=== PATIENT | male | born 1975 | race African-American/Black ===

== ENCOUNTER 2017-05-20 01:08 | Inpatient (IN) | payer OTHER ==
[~2017-05-20] VITALS: Ht 182.9 cm; Wt 76.2 kg
[2017-05-20] VITALS (7 sets, daily range): BP systolic 125–160; BP diastolic 87–109
--- NOTE | ~2017-05-20 | EKG ---
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 : 1975 Requested By: Holly Roger Order Number: [id number] MD: Johnny Pacheco Measurements Intervals [place] Rate: 78 P: [place]: QRS: 45 QRSD: 114 T: 57 QT: 519 QTc: 592 Interpretive Statements Normal sinus rhythm Borderline intraventricular conduction delay ST elev, probable normal early repol pattern Prolonged QT interval Artifact in lead(s) I,II,aVR,aVF Compared to ECG 04/03/2016 07:22:37 Prolonged QT interval now present Electronically Signed On 05-20-2017 7:18:24 CDT by Johnny Pacheco [email or web address] <ELECTRONICALLY SIGNED> By: Johnny Pacheco MD, [facility] 05/20/17 0718 011 011 Johnny Pacheco MD, [facility] /EPI
--- NOTE | ~2017-05-20 | EKG ---
[place] [address] [facility] [id number] ELECTROCARDIOGRAM REPORT Name: CRISTOPHER WALKER Room #: 361-P ADM IN M.R.#: [id number] Admission: 05/20/17 Attend Phys: Pancho Mcnally DO Discharge: Date of : 77 Report #: [id number] THIS REPORT FOR: //name// [facility] Test Date: 2017-05-20 Test Time: 04:54:04 Pat Name: CRISTOPHER WALKER Department: Room: 361 Gender: M Director Home: marlene leonardo : 1975 Requested By: Marilu Anderson Order Number: [id number] MD: Johnny Pacheco Measurements Intervals [place] Rate: 76 P: 74 W[place]: 148 QRS: 55 QRSD: 102 T: 50 QT: 405 QTc: 456 Interpretive Statements Sinus rhythm Left ventricular hypertrophy Baseline wander in lead(s) V3 Compared to ECG 04/03/2016 07:22:37 QT interval shortened Electronically Signed On 05-20-2017 7:19:24 CDT by Johnny Pacheco [email or web address] <ELECTRONICALLY SIGNED> By: Johnyn Pacheco MD, [facility] 05/20/17 0719 0454 045 Johnny Pacheco MD, [facility] /EPI
[~2017-05-20 01:08] MED LIST: ASPIRIN325 PO; COLCHICINE0.6 MG PO; OMEPRAZOLE20 M1 PO
[2017-05-20 01:29] LABS: ABSOLUTE NEUTROPHILS 5.6 thou/uL (1.4-8.2); BASOPHILS 0.3 % (0.0-2.0); EOSINOPHILS 0.2 % (0.0-3.0); HEMOGLOBIN 15.4 gm/dL (14.0-18.0); LYMPHOCYTES 27.4 % (24.0-44.0); MCH 34.8 pg (26.0-34.0); MCHC 34.9 g/dL (28.0-37.0); MCV 99.7 fL (80.0-100.0); MONOCYTES 9.8 % (1.0-8.0); PLATELET COUNT 308 thou/uL (150-400); POLYS 62.3 % (36.0-66.0); RBC 4.41 mil/uL (4.50-6.00); RDW 14.1 % (10.5-14.5)
[2017-05-20] MEDS ORDERED: LISINOPRIL10 MG PO (01:32)
[2017-05-20] MEDS ORDERED: NAPROSYN500 MG PO (01:33)
[2017-05-20] MEDS ORDERED: CELEXA20 MG PO (01:33)
[2017-05-20] MEDS ORDERED: CHLORTHALIDONE25 MG PO (01:33)
[2017-05-20] MEDS ORDERED: LIPITOR10 MG PO (01:33)
[2017-05-20 01:36] LABS: ANION GAP 20 mmol/L (7-16); BUN 17 mg/dL (7-18); CALCIUM 9.2 mg/dL (8.5-10.1); CHLORIDE 79 mmol/L (98-107); CO2 24 mmol/L (21-32); CREATININE 1.1 mg/dL (0.7-1.3); GLUCOSE 154 mg/dL (74-106); SODIUM 123 mmol/L (136-145)
[2017-05-20 01:45] LABS: TROPONIN-I < 0.04 ng/mL (<0.06)
[2017-05-20 09:19] LABS: AMP/METHAMP Negative (Negative); BARBITURATES Negative (Negative); BENZODIAZEPINES Negative (Negative); COCAINE Negative (Negative); METHADONE Negative (Negative); OPIATES Negative (Negative); PCP Negative (Negative)
[2017-05-21 03:29] VITALS: BP 138/90
[2017-05-21 04:45] LABS: CALCIUM 9.3 mg/dL (8.5-10.1); CREATININE 0.9 mg/dL (0.7-1.3); POTASSIUM 4.6 mmol/L (3.5-5.1)
[2017-05-21 07:35] VITALS: BP 135/87
[2017-05-21] MEDS ORDERED: ASPIR 8181 MG PO (09:18)
[2017-05-21 09:41] VITALS: BP 135/87
== END 2017-05-21 10:55 | disposition home or self-care (01) | DRG 313 ==
LOC: ER 01:08 → EROBS 02:51 → 3W 03:24 → ENTRNSPT 05-21 10:45 → EDTRNSPTSTS 05-21 10:48 → 3W 05-21 10:55
PROVIDERS: Emergency Medicine; Family Medicine; Nurse Practitioner Family
DX: R07.9 Chest pain, unspecified (principal); M62.82 Rhabdomyolysis; E87.6 Hypokalemia; F10.20 Alcohol dependence, uncomplicated; I10 Essential (primary) hypertension; E78.5 Hyperlipidemia, unspecified; F32.9 Major depressive disorder, single episode, unspecified; F17.210 Nicotine dependence, cigarettes, uncomplicated; E83.42 Hypomagnesemia; Z80.41 Family history of malignant neoplasm of ovary; Z80.1 Family history of malignant neoplasm of trachea, bronchus and lung; Z83.3 Family history of diabetes mellitus; Z23 Encounter for immunization
CPT/HCPCS: 10879